=== PATIENT | female | born 1965 | race Caucasian/White ===

== ENCOUNTER 2020-08-25 13:46 | Emergency (ER) | payer OTHER ==
[2020-08-25 13:54] VITALS: RESP 18
[2020-08-25] MEDS ORDERED: KETOROLAC 15 MG/ML 1 ML VIAL IM STA (14:08)
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
--- NOTE | 2020-08-25 14:55 | XR ---
EXAMINATION TYPE: XR thoracic spine 2V DATE OF EXAM: 08/25/2020 CLINICAL HISTORY: pain TECHNIQUE: Frontal, lateral, and swimmer's view of thoracic spine are obtained. COMPARISON: None. FINDINGS: Thoracic spine show satisfactory alignment without evidence of acute fracture or dislocatio n. Vertebral body heights are preserved. Disc spaces are well preserved. Visualized ribs are unrem arkable. IMPRESSION: No acute fracture or dislocation is seen in the thoracic spine. ICD 10 NO FRACTURE, INIT IAL EVALUATION
--- NOTE | 2020-08-25 14:56 | XR ---
EXAMINATION TYPE: XR lumbar spine 2 or 3V DATE OF EXAM: 08/25/2020 CLINICAL HISTORY: pain TECHNIQUE: Three views of the lumbar spine are submitted. COMPARISON: None. FINDINGS: There are 5 lumbar type vertebral bodies identified. The lumbar spine shows satisfactory alignment w ithout evidence of acute fracture or dislocation. Vertebral body heights are within normal limits. Mild degenerative disc space narrowing L4-5 with grade 1 anterolisthesis measuring 4 mm of L4 and L5. Facet joint arthropathy. The overlying soft tissue appears unremarkable. IMPRESSION: Degenerative change with grade 1 anterolisthesis L4 on L5.
--- NOTE | 2020-08-25 14:57 | XR ---
EXAMINATION TYPE: XR cervical spine limited DATE OF EXAM: 08/25/2020 CLINICAL HISTORY: pain TECHNIQUE: 3 views of the cervical spine are submitted. COMPARISON: None. FINDINGS: There is reversal of the normal cervical lordosis. Moderate to severe degenerative narrowin g noted to extend from C3-4 through C6-7. Ventral and dorsal spondylosis. No evidence for fracture or malalignment. IMPRESSION: No acute fracture or dislocation is seen in the cervical spine.
[2020-08-25 15:56] VITALS: BP 146/78; PULSE 82; TEMP 98.3
== END 2020-08-25 15:55 | disposition home or self-care (01) ==
LOC: EC 13:46
DX: S39.012A Strain of muscle, fascia and tendon of lower back, initial encounter (principal); M43.16 Spondylolisthesis, lumbar region; M54.42 Lumbago with sciatica, left side; M54.41 Lumbago with sciatica, right side; V43.52XA Car driver injured in collision with other type car in traffic accident, initial encounter; Y92.488 Other paved roadways as the place of occurrence of the external cause
CPT/HCPCS: 72070; 72040; 72100; 99283; 96372; J1885

== ENCOUNTER 2021-08-10 22:44 | Emergency (ER) | payer OTHER ==
--- NOTE | 2021-08-10 23:08 | XR ---
EXAMINATION TYPE: XR chest 2V DATE OF EXAM: 08/10/2021 COMPARISON: NONE HISTORY: Chest pain TECHNIQUE: 2 view FINDINGS: Heart and mediastinum are normal. Lungs are clear. Diaphragm is normal. Bony thorax is inta ct. IMPRESSION: Normal chest.
[2021-08-10 23:10] LABS: Basophils # (A) 0.1 k/uL (0-0.2); Basophils % (A) 1 %; Eosinophils # (A) 0.2 k/uL (0-0.7); Eosinophils % (A) 3 %; HCT 40.4 % (34.0-46.0); HGB 13.4 gm/dL (11.4-16.0); Lymphocytes # (A) 2.6 k/uL (1.0-4.8); Lymphocytes % (A) 36 %; MCH 29.6 pg (25.0-35.0); MCHC 33.1 g/dL (31.0-37.0); MCV 89.5 fL (80.0-100.0); Monocytes # (A) 0.3 k/uL (0-1.0); Monocytes % (A) 4 %; Neutrophils % (A) 55 %; Platelet Count 275 k/uL (150-450); RBC 4.51 m/uL (3.80-5.40); RDW 12.9 % (11.5-15.5); WBC 7.3 k/uL (3.8-10.6)
[2021-08-10 23:19] LABS: Albumin 4.6 g/dL (3.5-5.0); Calcium 9.7 mg/dL (8.4-10.2); Magnesium 1.8 mg/dL (1.6-2.3); Potassium 3.7 mmol/L (3.5-5.1); Total Bilirubin 0.7 mg/dL (0.2-1.3); Total Protein 7.1 g/dL (6.3-8.2)
[2021-08-10 23:28] LABS: INR 0.9 (<1.2); Prothrombin Time 9.7 sec (9.0-12.0)
[2021-08-10 23:59] LABS: Partial Thromboplastin Time 18.4 sec (22.0-30.0)
--- NOTE | 2021-08-11 02:08 | CT ---
EXAMINATION TYPE: CT chest angio for PE DATE OF EXAM: 08/11/2021 COMPARISON: None HISTORY: R/O PE, Chest Pain CT DLP: 342.40 mGycm Automated exposure control for dose reduction was used. CONTRAST: Performed with IV Contrast, patient injected with 70 mL of Isovue 370. There are Three-D postprocessed images. Thoracic vertebra have normal alignment. Sternum is intact. The ribs appear intact. There is no mediastinal adenopathy. Thoracic aorta is intact. There is no aneurysm or dissection. The re are no hilar masses. The ascending aorta measures 3.2 cm. There is normal contrast opacification o f the pulmonary arteries. There are no filling defects. The upper abdominal soft tissues appear intact. The lungs are clear of consolidation. There is no pavithra dence of a pulmonary mass. There is minimal subpleural interstitial density in the posterior lung fie lds consistent with mild fibrosis. IMPRESSION: Negative exam. No evidence of pulmonary embolism. No evidence of any significant lung disease.
[2021-08-11 03:19] VITALS: BP 150/99; PULSE 74; RESP 20; TEMP 96.9
--- NOTE | 2021-08-11 03:26 | ED ---
General Adult HPI - General Chief complaint: Chest Pain Stated complaint: Chest pain Time Seen by Provider: 08/10/21 23:58 Source: EMS Mode of arrival: EMS Limitations: no limitations - History of Present Illness Initial comments: 56 year-old female patient with past history significant for diabetes, hypertension, and former tobacco use presents to the emergency department for evaluation of chest pain. States she has been having sharp stabbing pains to the right side of her chest for the last 3 days. States that today she had an intense sharp pain to the left side of her chest. States that it felt like she was having a "heart attack or stroke". States she had some tingling to the left arm. States she has been feeling short of breath since she had COVID at the beginning of this month. She did have elevated blood pressure after the pain started at home. She denies any history of heart disease. Denies any dizziness, headache, facial droop, or difficulty with speech. Denies any back pain or abdominal pain. Patient denies any recent rash, fever, chills, cough, nausea, vomiting, diarrhea, constipation, back pain, numbness, tingling, dizziness, weakness, hematuria, dysuria, urinary urgency, urinary frequency, headache, visual changes, or any other complaints. - Related Data Allergies Allergy/AdvReac Type Severity Reaction Status Date / Time No Known Allergies Allergy Verified 08/10/21 22:47 Review of Systems ROS Statement: Those systems with pertinent positive or pertinent negative responses have been documented in the HPI. ROS Other: All systems not noted in ROS Statement are negative. Past Medical History Past Medical History: Diabetes Mellitus, Hyperlipidemia, Hypertension History of Any Multi-Drug Resistant Organisms: None Reported Past Surgical History: No Surgical Hx Reported Past Psychological History: Anxiety Smoking Status: Never smoker Past Alcohol Use History: Occasional Past Drug Use History: Marijuana General Exam Limitations: no limitations General appearance: alert, in no apparent distress, other (This is a well- developed, well-nourished adult female patient in no acute distress.) ENT exam: Present: normal exam, normal oropharynx, mucous membranes moist Respiratory exam: Present: normal lung sounds bilaterally. Absent: respiratory distress, wheezes, rales, rhonchi, stridor Cardiovascular Exam: Present: regular rate, normal rhythm, normal heart sounds. Absent: systolic murmur, diastolic murmur, rubs, gallop, clicks GI/Abdominal exam: Present: soft, normal bowel sounds. Absent: distended, tenderness, guarding, rebound, rigid Neurological exam: Present: alert, oriented X3, CN II-XII intact Psychiatric exam: Present: normal affect, normal mood Skin exam: Present: warm, dry, intact, normal color. Absent: rash Course Vital Signs 08/10/21 08/11/21 22:45 03:18 Temperature 97.8 F 96.9 F L Pulse Rate 83 74 Respiratory 18 20 Rate Blood Pressure 167/104 150/99 O2 Sat by Pulse 100 100 Oximetry EKG Findings - EKG Comments: EKG Findings:: EKG #1 obtained at 2250 shows normal sinus rhythm with a ventricular rate of 77, WI interval 162, QRS duration 70, QT 376, QTC 425. No evidence of ST elevation or depression. EKG #2 obtained at 0241 shows normal sinus rhythm with a ventricular rate of 64, WI interval 164, QRS duration 74, QT 424, QTC 437. No evidence of ST elevation or depression. Medical Decision Making - Medical Decision Making 56-year-old female patient presents to the emergency department today for evaluation of chest pain intermittent over the last three days. Worse today. Physical exam is unremarkable. Lungs are clear to auscultation. Abdomen soft and nontender. Heart sounds are normal. Labs reviewed and were unremarkable. Troponin is negative. Did add d-dimer which was 3.95. CT chest angiography was obtained and was negative for any abnormalities or pulmonary embolism. Repeat troponin was again negative. Repeat EKG showed sinus rhythm. I did discuss findings and results with her. She did recently have pretty severe COVID-19 infection is felt that these symptoms could be related to that infection. She is to be discharged to follow up with her primary care physician for recheck in 1-2 days which is instructed HER lumber puller. Return parameters were discussed in detail. She verbalizes understanding and agrees with this plan. My attending is Dr. Eddy. - Lab Data Result diagrams: 08/10/21 22:56 08/10/21 22:56 Lab Results 08/10/21 08/10/21 08/10/21 Range/Units 22:56 22:56 22:56 WBC 7.3 (3.8-10.6) k/uL RBC 4.51 (3.80-5.40) m/uL Hgb 13.4 (11.4-16.0) gm/dL Hct 40.4 (34.0-46.0) % MCV 89.5 (80.0-100.0) fL MCH 29.6 (25.0-35.0) pg MCHC 33.1 (31.0-37.0) g/dL RDW 12.9 (11.5-15.5) % Plt Count 275 (150-450) k/uL MPV 7.0 Neutrophils % 55 % Lymphocytes % 36 % Monocytes % 4 % Eosinophils % 3 % Basophils % 1 % Neutrophils # 4.0 (1.3-7.7) k/uL Lymphocytes # 2.6 (1.0-4.8) k/uL Monocytes # 0.3 (0-1.0) k/uL Eosinophils # 0.2 (0-0.7) k/uL Basophils # 0.1 (0-0.2) k/uL PT 9.7 (9.0-12.0) sec INR 0.9 (<1.2) APTT 18.4 L (22.0-30.0) sec D-Dimer (<0.60) mg/L FEU Sodium 138 (137-145) mmol/L Potassium 3.7 (3.5-5.1) mmol/L Chloride 103 (98-107) mmol/L Carbon Dioxide 24 (22-30) mmol/L Anion Gap 11 mmol/L BUN 24 H (7-17) mg/dL Creatinine 0.86 (0.52-1.04) mg/dL Est GFR (CKD-EPI)AfAm 89 (>60 ml/min/1.73 sqM) Est GFR (CKD-EPI)NonAf 77 (>60 ml/min/1.73 sqM) Glucose 127 H (74-99) mg/dL Calcium 9.7 (8.4-10.2) mg/dL Magnesium 1.8 (1.6-2.3) mg/dL Total Bilirubin 0.7 (0.2-1.3) mg/dL AST 41 H (14-36) U/L ALT 80 H (4-34) U/L Alkaline Phosphatase 127 H (38-126) U/L Troponin I (0.000-0.034) ng/mL Total Protein 7.1 (6.3-8.2) g/dL Albumin 4.6 (3.5-5.0) g/dL 08/10/21 08/10/21 08/11/21 Range/Units 22:56 22:56 02:47 WBC (3.8-10.6) k/uL RBC (3.80-5.40) m/uL Hgb (11.4-16.0) gm/dL Hct (34.0-46.0) % MCV (80.0-100.0) fL MCH (25.0-35.0) pg MCHC (31.0-37.0) g/dL RDW (11.5-15.5) % Plt Count (150-450) k/uL MPV Neutrophils % % Lymphocytes % % Monocytes % % Eosinophils % % Basophils % % Neutrophils # (1.3-7.7) k/uL Lymphocytes # (1.0-4.8) k/uL Monocytes # (0-1.0) k/uL Eosinophils # (0-0.7) k/uL Basophils # (0-0.2) k/uL PT (9.0-12.0) sec INR (<1.2) APTT (22.0-30.0) sec D-Dimer 3.95 H (<0.60) mg/L FEU Sodium (137-145) mmol/L Potassium (3.5-5.1) mmol/L Chloride (98-107) mmol/L Carbon Dioxide (22-30) mmol/L Anion Gap mmol/L BUN (7-17) mg/dL Creatinine (0.52-1.04) mg/dL Est GFR (CKD-EPI)AfAm (>60 ml/min/1.73 sqM) Est GFR (CKD-EPI)NonAf (>60 ml/min/1.73 sqM) Glucose (74-99) mg/dL Calcium (8.4-10.2) mg/dL Magnesium (1.6-2.3) mg/dL Total Bilirubin (0.2-1.3) mg/dL AST (14-36) U/L ALT (4-34) U/L Alkaline Phosphatase (38-126) U/L Troponin I <0.012 <0.012 (0.000-0.034) ng/mL Total Protein (6.3-8.2) g/dL Albumin (3.5-5.0) g/dL - Radiology Data Radiology results: report reviewed, image reviewed Two-view x-ray of the chest are obtained. Report was reviewed in its entirety. Impression by Dr. Douglass shows normal chest. CT chest angiography for pulmonary embolus was obtained. Report was reviewed in its entirety. Impression by Dr. Douglass shows negative exam. No evidence for pulmonary embolism. No evidence for any significant lung disease. Disposition Clinical Impression: Chest pain Disposition: HOME SELF-CARE Condition: Good Instructions (If sedation given, give patient instructions): Chest Pain (ED) Additional Instructions: Follow up with your primary care physician as soon as possible. Consider follow-up with her lumber puller. Return for any new, worsening, or concerning symptoms. Is patient prescribed a controlled substance at d/c from ED?: No Referrals: Vanesa Ruvalcaba MD [Primary Care Provider] - 1-2 days Time of Disposition: 03:58
== END 2021-08-11 04:05 | disposition home or self-care (01) ==
LOC: EC 22:44
DX: R07.9 Chest pain, unspecified (principal); E11.9 Type 2 diabetes mellitus without complications; I10 Essential (primary) hypertension
CPT/HCPCS: 36415 ×2; 93005 ×2; 85379; 80053; 83735; 84484 ×2; 85025; 85610; 85730; 71046; 71275; 99285; Q9967

== ENCOUNTER 2021-11-26 11:50 | Observation (INO) | payer BC, OTHER ==
[2021-11-26] MEDS ORDERED: ASPIRIN 81 MG PO STA (12:17)
--- NOTE | 2021-11-26 13:11 | XR ---
EXAMINATION TYPE: XR chest 2V DATE OF EXAM: 11/26/2021 COMPARISON: 08/10/2021 TECHNIQUE: PA and lateral views submitted. HISTORY: Pain FINDINGS: The lungs are clear and there is no pneumothorax, pleural effusion, or focal pneumonia. Heart size normal no overt failure. Hyperinflation of the lungs, correlate for COPD. Hypertrophic change of the spine. IMPRESSION: 1. No acute process.
[2021-11-26 13:14] LABS: Basophils # (A) 0.1 k/uL (0-0.2); Basophils % (A) 1 %; Eosinophils # (A) 0.2 k/uL (0-0.7); Eosinophils % (A) 3 %; HCT 45.3 % (34.0-46.0); HGB 14.5 gm/dL (11.4-16.0); Lymphocytes # (A) 1.9 k/uL (1.0-4.8); Lymphocytes % (A) 33 %; MCH 28.9 pg (25.0-35.0); MCHC 31.9 g/dL (31.0-37.0); MCV 90.5 fL (80.0-100.0); Mean Platelet Volume 6.8; Monocytes # (A) 0.3 k/uL (0-1.0); Monocytes % (A) 6 %; Neutrophils # (A) 3.1 k/uL (1.3-7.7); Neutrophils % (A) 55 %; Platelet Count 307 k/uL (150-450); RBC 5.01 m/uL (3.80-5.40); RDW 12.5 % (11.5-15.5); WBC 5.7 k/uL (3.8-10.6)
[2021-11-26 13:30] LABS: INR 0.9 (<1.2); Prothrombin Time 10.2 sec (9.0-12.0)
[2021-11-26 13:34] LABS: Partial Thromboplastin Time 21.5 sec (22.0-30.0)
[2021-11-26 13:39] LABS: ALT 64 U/L (4-34); AST 47 U/L (14-36); African American GFR (CKD) >90 (>60 ml/min/1.73 sqM); Albumin 4.8 g/dL (3.5-5.0); Alkaline Phosphatase 83 U/L (38-126); Anion Gap 9 mmol/L; Blood Urea Nitrogen 9 mg/dL (7-17); Calcium 9.9 mg/dL (8.4-10.2); Carbon Dioxide 31 mmol/L (22-30); Chloride 98 mmol/L (98-107); Glucose 100 mg/dL (74-99); Magnesium 1.9 mg/dL (1.6-2.3); Non-African American GFR(CKD) 82 (>60 ml/min/1.73 sqM); Potassium 3.5 mmol/L (3.5-5.1); Sodium 138 mmol/L (137-145); Total Bilirubin 1.1 mg/dL (0.2-1.3); Total Protein 7.5 g/dL (6.3-8.2)
[2021-11-26] MEDS ORDERED: MORPHINE SULFATE 4 MG/ML SYRINGE IV PRN (14:48)
[2021-11-26] MEDS ORDERED: NALOXONE 0.4 MG/ML 1 ML VIAL IV PRN (14:48)
--- NOTE | 2021-11-26 14:57 | ED ---
General Adult HPI - General Chief complaint: Chest Pain Stated complaint: chest pain post cardiac procedure Time Seen by Provider: 11/26/21 12:09 Source: patient, RN notes reviewed, old records reviewed Mode of arrival: wheelchair Limitations: no limitations - History of Present Illness Initial comments: Patient is a 56-year-old female with past history remarkable for diabetes, hypertension who presents emergency Department complaining of chest pain. Started yesterday. She states she "over exerted myself." Describes it as a sharp sensation over the left part of her chest. States it also radiated up from her left wrist towards her chest. She did receive a cardiac catheterization 2-3 days ago which showed some 30-40% blockages but no interven tion was performed. States that since that time she has been "sore" but manageable. States that the pain that she expenses yesterday is gone and now it is minimally present. Denies any shortness of breath, abdominal pain, nausea, vomiting. Called her industrial automation engineer recommended she come for evaluation. Dr. castañeda baby aspirin at home. Currently asymptomatic. - Related Data Home Medications Medication Instructions Recorded Confirmed Aspirin 81 mg PO DAILY 11/26/21 11/26/21 Chlorthalidone 25 mg PO DAILY 11/26/21 11/26/21 Cider Vinegar [Apple Cider Vinegar] 300 mg PO DAILY 11/26/21 11/26/21 Garlic 500 mg PO DAILY 11/26/21 11/26/21 Nitroglycerin Sl Tabs [Nitrostat] 0.4 mg SUBLINGUAL Q5M PRN 11/26/21 11/26/21 [place]-3 Fatty Acids/Fish Oil [Fish 1 cap PO DAILY 11/26/21 11/26/21 Oil 1,000 mg Softgel] Rosuvastatin [Crestor] 20 mg PO DAILY 11/26/21 11/26/21 Semaglutide [Ozempic] 0.25 mg SQ TU 11/26/21 11/26/21 buPROPion XL [Wellbutrin XL] 300 mg PO DAILY 11/26/21 11/26/21 lisinopriL [Zestril] 10 mg PO DAILY 11/26/21 11/26/21 Allergies Allergy/AdvReac Type Severity Reaction Status Date / Time No Known Allergies Allergy Verified 11/26/21 13:53 Review of Systems ROS Statement: Those systems with pertinent positive or pertinent negative responses have been documented in the HPI. Review of Systems: CONST: Denies fever EYES: Denies blurry vision ENT: Denies nasal congestion C/V: Denies Chest pain RESP: Denies shortness of breath GI: Denies abdominal pain : Denies dysuria SKIN: Denies rash. MSK: Denies joint pain. NEURO: Denies headache ROS Other: All systems not noted in ROS Statement are negative. Past Medical History Past Medical History: Diabetes Mellitus, Hyperlipidemia, Hypertension History of Any Multi-Drug Resistant Organisms: None Reported Past Surgical History: No Surgical Hx Reported, Heart Catheterization Past Psychological History: Anxiety Smoking Status: Never smoker Past Alcohol Use History: Occasional Past Drug Use History: Marijuana General Exam - General Exam Comments Initial Comments: General: Appears in no acute distress. HEAD: Normal with no signs of head trauma. EYES: PERRLA, EOMI, conjunctiva normal, no discharge. ENT: Hearing grossly intact, normal oropharynx. RESPIRATORY: Clear breath sounds bilaterally. No wheezes, rales, or rhonchi. C/V: Regular rate and rhythm. S1 and S2 auscultated, no edema, peripheral pulses 2+ and intact throughout. Current discomfort is somewhat reproducible on palpation. ABD: Abd is soft, nontender, nondistended EXT: Normal range of motion, no obvious deformity SKIN: No rashes or lesions observed on exposed skin. NEURO: Alert and oriented x 4. Cranial nerves II-XII intact. No focal sensory or strength deficits. Limitations: no limitations Course Vital Signs 11/26/21 11:54 Pulse Rate 77 Respiratory 18 Rate Blood Pressure 149/106 O2 Sat by Pulse 99 Oximetry Medical Decision Making - Medical Decision Making Based on the patient's presentation and physical exam, I'm concerned for possible cardiac etiology for her current symptoms. Before we will obtain a cardiac workup. She'll be given aspirin. She is currently asymptomatic. She was in agreement this plan. EKG was within normal limits and show no signs of acute ischemia. Laboratory studies revealed a mild elevated AST of 47 and ALT of 64. Troponin is indeterminate at 0.022. The remainder the labs are unremarkable. Chest x-ray reveals no acute cardiopulmonary process. Patient's heart score is 3-4. I discussed the findings with the patient. I would like to admit her to cardiac observation for troponin trending. She was in agreement this plan. She maintained asymptomatic at this time. Vital signs remained within normal limits at this time. I spoke with the admitting team, Dr. Day who accepted the patient. She was admitted to observation telemetry. Cardiology was consulted. Echo was ordered. - Lab Data Result diagrams: 11/26/21 12:54 11/26/21 12:54 Lab Results 11/26/21 11/26/21 11/26/21 Range/Units 12:54 12:54 12:54 WBC 5.7 (3.8-10.6) k/uL RBC 5.01 (3.80-5.40) m/uL Hgb 14.5 (11.4-16.0) gm/dL Hct 45.3 (34.0-46.0) % MCV 90.5 (80.0-100.0) fL MCH 28.9 (25.0-35.0) pg MCHC 31.9 (31.0-37.0) g/dL RDW 12.5 (11.5-15.5) % Plt Count 307 (150-450) k/uL MPV 6.8 Neutrophils % 55 % Lymphocytes % 33 % Monocytes % 6 % Eosinophils % 3 % Basophils % 1 % Neutrophils # 3.1 (1.3-7.7) k/uL Lymphocytes # 1.9 (1.0-4.8) k/uL Monocytes # 0.3 (0-1.0) k/uL Eosinophils # 0.2 (0-0.7) k/uL Basophils # 0.1 (0-0.2) k/uL PT 10.2 (9.0-12.0) sec INR 0.9 (<1.2) APTT 21.5 L (22.0-30.0) sec Sodium 138 (137-145) mmol/L Potassium 3.5 (3.5-5.1) mmol/L Chloride 98 (98-107) mmol/L Carbon Dioxide 31 H (22-30) mmol/L Anion Gap 9 mmol/L BUN 9 (7-17) mg/dL Creatinine 0.82 (0.52-1.04) mg/dL Est GFR (CKD-EPI)AfAm >90 (>60 ml/min/1.73 sqM) Est GFR (CKD-EPI)NonAf 82 (>60 ml/min/1.73 sqM) Glucose 100 H (74-99) mg/dL Calcium 9.9 (8.4-10.2) mg/dL Magnesium 1.9 (1.6-2.3) mg/dL Total Bilirubin 1.1 (0.2-1.3) mg/dL AST 47 H (14-36) U/L ALT 64 H (4-34) U/L Alkaline Phosphatase 83 (38-126) U/L Troponin I (0.000-0.034) ng/mL Total Protein 7.5 (6.3-8.2) g/dL Albumin 4.8 (3.5-5.0) g/dL 11/26/21 Range/Units 12:54 WBC (3.8-10.6) k/uL RBC (3.80-5.40) m/uL Hgb (11.4-16.0) gm/dL Hct (34.0-46.0) % MCV (80.0-100.0) fL MCH (25.0-35.0) pg MCHC (31.0-37.0) g/dL RDW (11.5-15.5) % Plt Count (150-450) k/uL MPV Neutrophils % % Lymphocytes % % Monocytes % % Eosinophils % % Basophils % % Neutrophils # (1.3-7.7) k/uL Lymphocytes # (1.0-4.8) k/uL Monocytes # (0-1.0) k/uL Eosinophils # (0-0.7) k/uL Basophils # (0-0.2) k/uL PT (9.0-12.0) sec INR (<1.2) APTT (22.0-30.0) sec Sodium (137-145) mmol/L Potassium (3.5-5.1) mmol/L Chloride (98-107) mmol/L Carbon Dioxide (22-30) mmol/L Anion Gap mmol/L BUN (7-17) mg/dL Creatinine (0.52-1.04) mg/dL Est GFR (CKD-EPI)AfAm (>60 ml/min/1.73 sqM) Est GFR (CKD-EPI)NonAf (>60 ml/min/1.73 sqM) Glucose (74-99) mg/dL Calcium (8.4-10.2) mg/dL Magnesium (1.6-2.3) mg/dL Total Bilirubin (0.2-1.3) mg/dL AST (14-36) U/L ALT (4-34) U/L Alkaline Phosphatase (38-126) U/L Troponin I 0.022 (0.000-0.034) ng/mL Total Protein (6.3-8.2) g/dL Albumin (3.5-5.0) g/dL - EKG Data -: EKG Interpreted by Me EKG Comments: 12-lead Electrocardiogram Interpretation Note EKG was reviewed and interpreted by myself. 12-lead ECG performed at 1205 is interpreted by me as revealing normal sinus rhythm at a rate of 74 beats per minute. [place] is normal.. Intervals 172 ms, QRS duration 78 ms, QTc is 402 ms.. There were no ST or T wave abnormalities to suggest myocardial ischemia or injury. R wave progression across the precordium was satisfactory. By my interpretation this EKG is non-diagnostic for acute ischemia. Disposition Clinical Impression: Chest pain Disposition: ADMITTED IP TO THIS HOSP Condition: Stable Referrals: Vanesa Ruvalcaba MD [Primary Care Provider] - 1-2 days Time of Disposition: 14:30
--- NOTE | 2021-11-26 17:01 | P.HPIM ---
History of Present Illness H&P Date: 11/26/21 History of Presenting Illness: Patient is a very pleasant 56-year-old female with a past medical history of hypertension, hyperlipidemia, type II lxk-siqhfsx-vladwtvzl diabetes mellitus, and anxiety. She presented to the emergency department with a chief complaint of chest pain. Patient follows up outpatient with millstone cleaner Dr. Stark out of [facility]. She reports that she underwent cardiac catheterization 2 days ago which reportedly revealed 30-40% blockages with no need for interventions at that time. Patient reports since undergoing cardiac cath she has felt a very mild soreness to her left anterior chest but states yesterday she thinks she overdid it and this pain began to increase significantly resulting in her need to take a sublingual nitroglycerin tablet. Patient states that the sublingual nitro did improve her pain but states it has since been waxing and waning and after talking to her millstone cleaner's this morning, she was instructed to take an aspirin and come straight to the hospital for evaluation. Patient denies having any headache, lightheadedness, dizziness, palpitations, shortness of breath, dyspnea with exertion, abdominal pain, nausea, vomiting, diaphoresis, or experiencing any numbness/tingling/weakness/swelling in her extremities. Patient reports cardiac cath was to left wrist and denies having any bleeding or drainage from the site and denies having any numbness/tingling/weakness in her left hand. Patient was seen and fully evaluated in the emergency department. She was found to have mildly elevated blood pressure of 149/106. CBC, coags, and CMP completed. Patient was found to have minimally elevated carbon dioxide of 31, AST of 47, and ALT of 64. Troponin 0.022. EKG revealing normal sinus rhythm with no noted T-wave or ST abnormalities showing no signs of acute ischemia. Chest x-ray negative for acute cardiopulmonary process did reveal hyperinflation of the lungs correlating for possible COPD. Patient was admitted under our services with consultation to cardiology. Review of systems: Pertinent positives and negatives as discussed in HPI, a complete review of systems was performed and all other systems are negative. Physical exam: Vital signs reviewed and stable. General: Nontoxic, no distress and appears stated age. Derm: Skin warm and dry, normal coloration for ethnicity. Mild bruising left wrist, no hematoma or bleeding noted. Head: Atraumatic, normocephalic and symmetric. Eyes: EOMs intact, no lid lag, and anicteric sclera Mouth: no lip lesions, mucus membranes moist Cardiovascular: regular rate and rhythm with normal S1S2, no murmur, positive posterior tibial pulses bilaterally, and cap refill < 2 seconds. Lungs: Respirations even, regular, and unlabored on room air. Lungs CTA bilaterally, no rhonchi, no rales, no wheezing, and no accessory muscle usage. Abdominal: soft, nontender to palpation, no guarding, no appreciable organomegaly Ext: ROM intact. No gross muscle atrophy, no edema, no contractures Neuro: Speech clear, face symmetrical and CN II-XII grossly intact with no noted focal neuro deficits Psych: Alert and oriented to person, place, time, and situation. Appropriate and pleasant affect. Assessment and Plan of Care: Chest pain, rule out acute coronary event -Cardiology consult, appreciate further recommendations -Telemetry monitoring -Trend troponins -Cardiac diet, NPO at midnight -Aspirin, atorvastatin, and metoprolol -Lipid profile with a.m. labs. -Echocardiogram Hypertension -Monitor vital signs and continue daily medication regimen with lisinopril. Hyperlipidemia -Continue daily medication regimen with atorvastatin. -Lipid profile with a.m. labs Type II adx-zldcbxy-qfjzetfuu diabetes mellitus -Hold Ozempic and place patient on glycemic protocol with NovoLog sliding scale. The patient is admitted with an anticipated less than 2 midnight stay for evaluation of chest pain CODE STATUS: Full code DVT prophylaxis: Heparin Discussed with: Patient and RN Anticipated discharge date: Likely tomorrow morning Anticipated discharge place: Home A total of 40 minutes was spent on the care of this complex patient more than 50 % of the time was spent in counseling and care coordination. I reviewed the documentation as provided by the DEEJAY above, who is the original author of this note. I agree with the documented assessment and plan, with the following changes: none Past Medical History Past Medical History: Diabetes Mellitus, Hyperlipidemia, Hypertension History of Any Multi-Drug Resistant Organisms: None Reported Past Surgical History: No Surgical Hx Reported, Heart Catheterization Past Psychological History: Anxiety Smoking Status: Never smoker Past Alcohol Use History: Occasional Past Drug Use History: Marijuana Medications and Allergies Home Medications Medication Instructions Recorded Confirmed Type Aspirin 81 mg PO DAILY 11/26/21 11/26/21 History Chlorthalidone 25 mg PO DAILY 11/26/21 11/26/21 History Cider Vinegar [Apple Cider Vinegar] 300 mg PO DAILY 11/26/21 11/26/21 History Garlic 500 mg PO DAILY 11/26/21 11/26/21 History Nitroglycerin Sl Tabs [Nitrostat] 0.4 mg SUBLINGUAL Q5M PRN 11/26/21 11/26/21 History [place]-3 Fatty Acids/Fish Oil [Fish 1 cap PO DAILY 11/26/21 11/26/21 History Oil 1,000 mg Softgel] Rosuvastatin [Crestor] 20 mg PO DAILY 11/26/21 11/26/21 History Semaglutide [Ozempic] 0.25 mg SQ TU 11/26/21 11/26/21 History buPROPion XL [Wellbutrin XL] 300 mg PO DAILY 11/26/21 11/26/21 History lisinopriL [Zestril] 10 mg PO DAILY 11/26/21 11/26/21 History Allergies Allergy/AdvReac Type Severity Reaction Status Date / Time No Known Allergies Allergy Verified 11/26/21 13:53 Physical Exam Osteopathic Statement: *. No significant issues noted on an osteopathic structural exam other than those noted in the History and Physical/Consult. Vitals: Vital Signs Pulse Resp BP Pulse Ox 11/26/21 11:54 77 18 149/106 99 Intake and Output 11/26/21 11/26/21 11/26/21 06:59 14:59 22:59 Other: Weight 79.379 kg Results CBC & Chem 7: 11/26/21 12:54 11/26/21 12:54 Labs: Abnormal Lab Results - Last 24 Hours (Table) 11/26/21 11/26/21 Range/Units 12:54 12:54 APTT 21.5 L (22.0-30.0) sec Carbon Dioxide 31 H (22-30) mmol/L Glucose 100 H (74-99) mg/dL AST 47 H (14-36) U/L ALT 64 H (4-34) U/L
[2021-11-26 17:25] LABS: Glucose,Whole Blood 129 mg/dL (75-99)
[2021-11-26] MEDS: INSULIN ASPART (NovoLOG) 100 UNIT/ML VIAL SQ SCH ×2 (18:10→21:49)
[2021-11-26] MEDS: HEPARIN SODIUM,PORCINE/PF 5,000 UNIT/0.5 ML SYRINGE SQ SCH (19:55)
[2021-11-26 21:42] LABS: Glucose,Whole Blood 98 mg/dL (75-99)
[2021-11-27] MEDS: HEPARIN SODIUM,PORCINE/PF 5,000 UNIT/0.5 ML SYRINGE SQ SCH ×2 (05:37→07:14)
[2021-11-27 06:48] LABS: Glucose,Whole Blood 105 mg/dL (75-99)
[2021-11-27] MEDS: INSULIN ASPART (NovoLOG) 100 UNIT/ML VIAL SQ SCH (07:14)
[2021-11-27 07:37] VITALS: BP 95/67; PULSE 75; RESP 14; TEMP 98
[2021-11-27] MEDS ORDERED: ASPIRIN 81 MG PO SCH (09:00)
[2021-11-27] MEDS ORDERED: CHLORTHALIDONE 25 MG TAB PO SCH (09:00)
[2021-11-27] MEDS ORDERED: lisinopriL 10 MG TAB PO SCH (09:00)
[2021-11-27] MEDS ORDERED: buPROPion XL 300 MG TAB.ER.24H PO SCH (09:00)
[2021-11-27] MEDS ORDERED: ATORVASTATIN 40 MG TAB PO SCH (09:00)
--- NOTE | 2021-11-27 09:29 | P.DS ---
Providers Date of admission: 11/26/21 14:50 Expected date of discharge: 11/27/21 Attending physician: Azael Day MD Consults: 11/26/21 14:49 Consult Physician Routine Consulting Provider: [facility] Consult Reason/Comments: chest pain, recent cath Do you want consulting provider notified?: Yes Primary care physician: Vanesa Armando [employer] Hospital Course: Patient is a very pleasant 56-year-old female with a past medical history of hypertension, hyperlipidemia, type II skg-eqvcyvu-juzzfvgld diabetes mellitus, and anxiety. She presented to the emergency department with a chief complaint of chest pain. Patient follows up outpatient with methods analyst data processing Dr. Stark out of [facility]. She reports that she underwent cardiac catheterization 2 days ago which reportedly revealed 30-40% blockages with no need for interventions at that time. Patient reports since undergoing cardiac cath she has felt a very mild soreness to her left anterior chest but states yesterday she thinks she overdid it and this pain began to increase significantly resulting in her need to take a sublingual nitroglycerin tablet. Patient states that the sublingual nitro did improve her pain but states it has since been waxing and waning and after talking to her methods analyst data processing's this morning, she was instructed to take an aspirin and come straight to the hospital for evaluation. Patient denies having any headache, lightheadedness, dizziness, palpitations, shortness of breath, dyspnea with exertion, abdominal pain, nausea, vomiting, diaphoresis, or experiencing any nu mbness/tingling/weakness/swelling in her extremities. Patient reports cardiac cath was to left wrist and denies having any bleeding or drainage from the site and denies having any numbness/tingling/weakness in her left hand. Patient was seen and fully evaluated in the emergency department. She was found to have mildly elevated blood pressure of 149/106. CBC, coags, and CMP completed. Patient was found to have minimally elevated carbon dioxide of 31, AST of 47, and ALT of 64. Troponin 0.022. EKG revealing normal sinus rhythm with no noted T-wave or ST abnormalities showing no signs of acute ischemia. Chest x-ray negative for acute cardiopulmonary process did reveal hyperinflation of the lungs correlating for possible COPD. Patient was admitted under our services with consultation to cardiology. Troponins were trended and ACS was ruled out. Cardiology was consulted and cleared the patient for discharge. Echocardiogram was done and pending at the time of this note. Patient was seen and examined on 11/27/2021. She reported complete resolution of her chest pain. She has an appointment with her methods analyst data processing on Tuesday. Advised to follow-up with her PCP within 1-2 days of di scharge. Advised to follow-up with cardiology within 1 week of discharge. Advised to come back to the ED for worsening chest, shortness breath, palpitations or lightheadedness. Patient verbalized understanding of the plan. This complex discharge to about 45 minutes to complete. General: [non toxic], [no distress], [appears at stated age] Derm: [warm], [dry] Head: [atraumatic], [normocephalic], [symmetric] Eyes: [EOMI], [no lid lag], [anicteric sclera] Mouth: [no lip lesion], [mucus membranes moist] Cardiovascular: [S1S2 reg], [no murmur] Lungs: [CTA bilateral], [no rhonchi, no rales] , [no accessory muscle use] Ext: [no gross muscle atrophy], [no edema], [no contractures] Neuro: [no focal neuro deficits] Psych: [Alert], [oriented], [appropriate affect] Discharge Diagnosis: Chest pain with history of CAD Hypertension Hyperlipidemia Diabetes Mellitus Transaminitis Pertinent Studies: Chest Xray EKG Troponin Echocardiogram Patient Condition at Discharge: Stable Plan - Discharge Summary Discharge Rx Participant: No New Discharge Prescriptions: Continue Semaglutide [Ozempic] 0.25 mg SQ TU Rosuvastatin [Crestor] 20 mg PO DAILY Aspirin 81 mg PO DAILY Nitroglycerin Sl Tabs [Nitrostat] 0.4 mg SUBLINGUAL Q5M PRN PRN Reason: Chest Pain Chlorthalidone 25 mg PO DAILY lisinopriL [Zestril] 10 mg PO DAILY buPROPion XL [Wellbutrin XL] 300 mg PO DAILY [place]-3 Fatty Acids/Fish Oil [Fish Oil 1,000 mg Softgel] 1 cap PO DAILY Discontinued Cider Vinegar [Apple Cider Vinegar] 300 mg PO DAILY Garlic 500 mg PO DAILY Discharge Medication List Aspirin 81 mg PO DAILY 11/26/21 [History] Chlorthalidone 25 mg PO DAILY 11/26/21 [History] Nitroglycerin Sl Tabs [Nitrostat] 0.4 mg SUBLINGUAL Q5M PRN 11/26/21 [History] [place]-3 Fatty Acids/Fish Oil [Fish Oil 1,000 mg Softgel] 1 cap PO DAILY 11/26/21 [History] Rosuvastatin [Crestor] 20 mg PO DAILY 11/26/21 [History] Semaglutide [Ozempic] 0.25 mg SQ TU 11/26/21 [History] buPROPion XL [Wellbutrin XL] 300 mg PO DAILY 11/26/21 [History] lisinopriL [Zestril] 10 mg PO DAILY 11/26/21 [History] Follow up Appointment(s)/Referral(s): Vanesa Ruvalcaba MD [Primary Care Provider] - 1-2 days Dorian Cummins MD [STAFF PHYSICIAN] - 1 Week Activity/Diet/Wound Care/Special Instructions: Diet: Cardiac, diabetic FU with PCP within 1-2 days of discharge. FU with Cardiology within 1 week of discharge. Take all medications as advised. Come back to the ED or call 911 for worsening chest pain, shortness of breath, dizziness, palpitations.
--- NOTE | 2021-11-27 10:00 | P.CRDCN ---
History of Present Illness History of present illness: HISTORY OF PRESENT ILLNESS: This is a 56 year old female with a past medical history significant for hypertension, hyperlipidemia, and diabetes. Patient follows with Dr. Stark at [facility]. We have been asked to see the patient in consultation for chest pain. Patient examined at the bedside. Patient states she underwent a cardiac catheterization on Tuesday at [facility]. She states that she was told she had a 40% blockage in one vessel and 30% blockage and a few other vessels, but unsure of which vessel specifically. She states she was told to take it easy for the next couple days. However the following day she states she went outside and was doing a lot of yard work when she began to have chest pain. She states that it felt like a heaviness. She states that she took a nitro and had some relief and then went to bed. However the following day she had some more discomfort again so she decided to come to the hospital. The patient denies having any chest pain at the time of my examination. * EKG reveals sinus mechanism with no signs of acute ischemia * Chest xray negative for acute process * Laboratory data: WBC 5.7. Hemoglobin 14.5. Platelet count 307. Sodium 138. Potassium 3.5. BUN 9. Creatinine 0.82. Troponin negative 3. * Current home cardiac medications include lisinopril 10 mg daily, aspirin 81 mg daily, chlorthalidone 25 mg daily, Crestor 20 mg daily REVIEW OF SYSTEMS: At the time of my exam: CONSTITUTIONAL: Denies fever or chills. HEENT: Denies blurred vision, vision changes, or eye pain. Denies hemoptysis CARDIOVASCULAR: Denies chest pain. Denies orthopnea. Denies PND. Denies palpitations RESPIRATORY: Denies shortness of breath. GASTROINTESTINAL: Denies abdominal pain. Denies nausea or vomiting. HEMATOLOGIC: Denies bleeding disorders. GENITOURINARY: Denies any blood in urine. SKIN: Denies pruitis. Denies rash. PHYSICAL EXAM: VITAL SIGNS: Reviewed. GENERAL: Well-developed in no acute distress. HEENT: Head is normocephalic. Pupils are equal, round. Sclerae anicteric. Mucous membranes of the mouth are moist. Neck supple. No JVD or thyromegaly LUNGS: Respirations even and unlabored. Lungs essentially clear to auscultation bilaterally. HEART: Regular rate and rhythm. S1 and S2 heard. ABDOMEN: Soft. Nondistended. Nontender. EXTREMITIES: Normal range of motion. No clubbing or cyanosis. Peripheral pulses intact. No lower extremity edema NEUROLOGIC: Awake and alert. Oriented x 3. ASSESSMENT: Chest pain, troponins negative 3 Hypertension Hyperlipidemia Diabetes Nonobstructive coronary artery disease PLAN: An acute coronary event has been ruled out Resume home cardiac medications Patient may be discharged home today from a cardiac standpoint and follow up with her primary accounting methods analyst Nurse practitioner note has been reviewed by physician. Signing provider agrees with the documented findings, assessment, and plan of care. Past Medical History Past Medical History: Diabetes Mellitus, Hyperlipidemia, Hypertension History of Any Multi-Drug Resistant Organisms: None Reported Past Surgical History: No Surgical Hx Reported, Heart Catheterization Past Anesthesia/Blood Transfusion Reactions: No Reported Reaction Past Psychological History: Anxiety Smoking Status: Never smoker Past Alcohol Use History: Occasional Past Drug Use History: Marijuana Medications and Allergies Home Medications Medication Instructions Recorded Confirmed Type Aspirin 81 mg PO DAILY 11/26/21 11/26/21 History Chlorthalidone 25 mg PO DAILY 11/26/21 11/26/21 History Nitroglycerin Sl Tabs [Nitrostat] 0.4 mg SUBLINGUAL Q5M PRN 11/26/21 11/26/21 History [place]-3 Fatty Acids/Fish Oil [Fish 1 cap PO DAILY 11/26/21 11/26/21 History Oil 1,000 mg Softgel] Rosuvastatin [Crestor] 20 mg PO DAILY 11/26/21 11/26/21 History Semaglutide [Ozempic] 0.25 mg SQ TU 11/26/21 11/26/21 History buPROPion XL [Wellbutrin XL] 300 mg PO DAILY 11/26/21 11/26/21 History lisinopriL [Zestril] 10 mg PO DAILY 11/26/21 11/26/21 History Allergies Allergy/AdvReac Type Severity Reaction Status Date / Time No Known Allergies Allergy Verified 11/26/21 13:53 Physical Exam Vitals: Vital Signs Temp Pulse Pulse Resp BP BP Pulse Ox 11/27/21 07:00 98.0 F 75 14 95/67 95 11/27/21 02:17 98.1 F 84 16 92/63 97 11/27/21 02:00 16 11/26/21 21:36 97.7 F 79 16 136/89 98 11/26/21 17:40 80 20 116/76 98 11/26/21 17:10 77 18 123/75 97 11/26/21 16:40 75 19 134/85 97 11/26/21 16:10 71 16 121/87 98 11/26/21 15:40 71 16 114/81 98 11/26/21 15:10 72 18 123/86 97 11/26/21 14:40 78 20 117/86 99 11/26/21 14:10 75 20 135/96 98 11/26/21 13:40 73 17 133/91 97 11/26/21 13:10 68 18 128/93 97 11/26/21 11:54 77 18 149/106 99 Intake and Output 11/26/21 11/27/21 11/27/21 22:59 06:59 14:59 Other: # Voids 1 1 Weight 79.379 kg Results 11/26/21 12:54 11/26/21 12:54 Cardiac Enzymes 11/26/21 11/26/21 11/26/21 Range/Units 12:54 12:54 16:26 AST 47 H (14-36) U/L Troponin I 0.022 0.023 (0.000-0.034) ng/mL 11/26/21 Range/Units 19:09 AST (14-36) U/L Troponin I 0.020 (0.000-0.034) ng/mL Coagulation 11/26/21 Range/Units 12:54 PT 10.2 (9.0-12.0) sec APTT 21.5 L (22.0-30.0) sec CBC 11/26/21 Range/Units 12:54 WBC 5.7 (3.8-10.6) k/uL RBC 5.01 (3.80-5.40) m/uL Hgb 14.5 (11.4-16.0) gm/dL Hct 45.3 (34.0-46.0) % Plt Count 307 (150-450) k/uL Comprehensive Metabolic Panel 11/26/21 Range/Units 12:54 Sodium 138 (137-145) mmol/L Potassium 3.5 (3.5-5.1) mmol/L Chloride 98 (98-107) mmol/L Carbon Dioxide 31 H (22-30) mmol/L BUN 9 (7-17) mg/dL Creatinine 0.82 (0.52-1.04) mg/dL Glucose 100 H (74-99) mg/dL Calcium 9.9 (8.4-10.2) mg/dL AST 47 H (14-36) U/L ALT 64 H (4-34) U/L Alkaline Phosphatase 83 (38-126) U/L Total Protein 7.5 (6.3-8.2) g/dL Albumin 4.8 (3.5-5.0) g/dL Current Medications Generic Name Dose Route Start Last Admin Trade Name Freq PRN Reason Stop Dose Admin Aspirin 81 mg 11/27/21 09:00 Aspirin 81 Mg PO DAILY [facility] Atorvastatin Calcium 40 mg 11/27/21 09:00 Atorvastatin 40 Mg Tab PO DAILY [facility] Bupropion HCl 300 mg 11/27/21 09:00 Bupropion Xl 300 Mg Tab.Er.24h PO DAILY [facility] Chlorthalidone 25 mg 11/27/21 09:00 Chlorthalidone 25 Mg Tab PO DAILY [facility] Heparin Sodium (Porcine) 5,000 unit 11/26/21 16:00 11/27/21 07:14 Heparin Sodium,Porcine/Pf 5,000 Unit/0.5 Ml Syringe SQ Not Given Q8HR [facility] Insulin Aspart 0 unit 11/26/21 17:30 11/27/21 07:14 Insulin Aspart (Novolog) 100 Unit/Ml Vial SQ Not Given ACHS [facility] Protocol Lisinopril 10 mg 11/27/21 09:00 Lisinopril 10 Mg Tab PO DAILY [facility] Morphine Sulfate 4 mg 11/26/21 14:48 Morphine Sulfate 4 Mg/Ml Syringe IV Q4HR PRN Severe Pain Naloxone HCl 0.2 mg 11/26/21 14:48 Naloxone 0.4 Mg/Ml 1 Ml Vial IV Q2M PRN Opioid Reversal Intake and Output 11/26/21 11/27/21 11/27/21 22:59 06:59 14:59 Other: # Voids 1 1 Weight 79.379 kg 11/26/21 12:54 11/26/21 12:54
--- NOTE | 2021-12-02 15:40 | CA ---
Transthoracic Echo Report Name: Angela George Age: 56 Gender: F : 1965 Exam Date: 11/26/2021 15:43 Exam Location: [facility] Ht (in): 64 Wt (lb): 175 Ordering Physician: Wei Bonilla MD Attending/Referring Phys: Operational Risk Manager Berenice Mari RDCS Procedure CPT: Indications: Chest Pain Cardiac Hx: Technical Quality: Technically difficult study Contrast 1: Lumason Total Dose (mL): 4 Contrast 2: Total Dose (mL): MEASUREMENTS (Male / Female) Normal Values 2D ECHO LV Diastolic Diameter PLAX 4.1 cm 4.2 - 5.9 / 3.9 - 5.3 cm LV Systolic Diameter PLAX 2.5 cm IVS Diastolic Thickness 1.1 cm 0.6 - 1.0 / 0.6 - 0.9 cm LVPW Diastolic Thickness 1.2 cm 0.6 - 1.0 / 0.6 - 0.9 cm LV Relative Wall Thickness 0.6 RV Internal Dim ED PLAX 2.9 cm LA Volume 39.1 cm??? 18 - 58 / 22 - 52 cm??? M-MODE Aortic Root Diameter MM 3.0 cm LA Systolic Diameter MM 3.2 cm LA Ao Ratio MM 1.1 AV Cusp Separation MM 2.0 cm DOPPLER AV Peak Velocity 122.4 cm/s AV Peak Gradient 6.0 mmHg LVOT Peak Velocity 88.5 cm/s LVOT Peak Gradient 3.1 mmHg MV Area PHT 4.0 cm??? Mitral E Point Velocity 54.8 cm/s Mitral A Point Velocity 79.6 cm/s Mitral E to A Ratio 0.7 MV Deceleration Time 190.6 ms FINDINGS Left Ventricle Normal left ventricular systolic function with no obvious regional wall motion abnormalities. Normal left ventricular diastolic filling pattern. Left ventricular cavity size normal. Mildly increased left ventricular wall thickness. Left ventricular ejection fraction is estimated at 50-55 %. Right Ventricle Normal right ventricular size and function. Right ventricular systolic pressure within normal limits. Right Atrium Normal right atrial size. Left Atrium Normal left atrial size. No evidence for an atrial septal defect. Mitral Valve Structurally normal mitral valve. No mitral stenosis, regurgitation or prolapse. Aortic Valve Trileaflet aortic valve. No aortic valve stenosis or regurgitation. Tricuspid Valve Structurally normal tricuspid valve. Trace tricuspid regurgitation. Pulmonic Valve Structurally normal pulmonic valve. Pericardium No pericardial effusion. Aorta Normal size aortic root and proximal ascending aorta. CONCLUSIONS Mildly increased left ventricular wall thickness. Left ventricular ejection fraction is estimated at 50-55 %. No mitral stenosis, regurgitation or prolapse. No pericardial effusion. Previewed by: Dr. Sal Rouse DO (Electronically Signed) Final Date: 27 Nov 2021 12:12
== END 2021-11-27 10:40 | disposition home or self-care (01) ==
LOC: EC 11:50 → 6NMEDSUR 14:50
PROVIDERS: ADMIT Internal Medicine; ATTEND Internal Medicine
DX: R07.89 Other chest pain (principal); I10 Essential (primary) hypertension; E78.5 Hyperlipidemia, unspecified; E11.9 Type 2 diabetes mellitus without complications; R74.01 Elevation of levels of liver transaminase levels; I25.10 Atherosclerotic heart disease of native coronary artery without angina pectoris; F41.9 Anxiety disorder, unspecified; Z79.82 Long term (current) use of aspirin; Z79.899 Other long term (current) drug therapy
CPT/HCPCS: 99285; 36415; 93005; 80053; 83735; 84484; 85025; 85610; 85730; 71046; G0378 ×2; C8929; Q9950; 93306